=== PATIENT | male | born 1955 | race Caucasian/White ===

== ENCOUNTER → 2022-12-08 | Outpatient (CLI) | payer MEDICARE ==
--- NOTE | 2022-12-08 19:07 | CT ---
EXAMINATION TYPE: CT iac wo con DATE OF EXAM: 12/08/2022 COMPARISON: None HISTORY: 67-year-old male left TINNITUS. Swimmer's ear. H93.19 TINNITUS, UNSPECIFIED EAR CT DLP: 142.7 mGycm Automated exposure control for dose reduction was used. TECHNIQUE: Contiguous high-resolution axial scanning of the temporal bones k performed without IV co ntrast. Coronal reformatted images obtained. FINDINGS: There is no abnormality of visualized intracranial structures. The skull base appears normal. The external auditory canals appear normal and patent. The middle ear cavities and mastoid air cells are well pneumatized. There is no abnormality of middle ear ossicles. The round and oval windows are normal. There is no abnormality of bony labyrinths. The vestibular and cochlear aqueducts are well visualized. The facial nerve canal is normal bilaterally. The internal auditory canal and meati are symmetrical bilaterally. There is no evidence of fractures. Only trace mucosal thickening maxillary sinuses, ethmoid air cells, and right frontal sinus. Leftward nasal septal deviation. Orbits and globes are intact. Reformatted images confirm above findings. IMPRESSION: 1. Unremarkable temporal bone CT. 2. Scattered trace chronic paranasal sinus disease. Leftward nasal septal deviation.
== END | disposition home or self-care (01) ==
LOC: RADCTMAIN 12:33
PROVIDERS: ATTEND Otolaryngology
DX: H93.19 Tinnitus, unspecified ear (principal); H91.90 Unspecified hearing loss, unspecified ear; J34.2 Deviated nasal septum; J34.89 Other specified disorders of nose and nasal sinuses
CPT/HCPCS: 70480